=== PATIENT | female | born 1980 | race Caucasian/White ===

== ENCOUNTER → 2020-03-07 11:10 | Outpatient (BNVA) | payer SELFPAY | PROVIDERS: Visit Provider Emergency Medicine | DX: J02.9 Acute pharyngitis, unspecified (principal) | CPT/HCPCS: 87880 ==

== ENCOUNTER → 2021-01-31 15:31 | Outpatient (BNVA) | payer BC, SELFPAY | PROVIDERS: Visit Provider Nurse Practitioner Family | DX: N39.0 Urinary tract infection, site not specified (principal) | CPT/HCPCS: 81000 ==

== ENCOUNTER 2024-05-04 15:08 | Emergency (ER) | payer BC, MEDICAID, SELFPAY ==
[2024-05-04 15:12] VITALS: BP 154/96; PULSE 83; RESP 20; TEMP 36.8; O2SAT 98; BMI 37.8
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
[2024-05-04 15:35] LABS: Basophils # 0.1 10^3/uL (0.0-0.1); Basophils % 0.7 %; Eosinophils # 0.3 10^3/uL (0.0-0.8); Eosinophils % 2.1 %; Hematocrit 41.9 % (36-47); Lymphocytes # 1.9 10^3/uL (0.8-4.8); Lymphocytes % 14.3 %; Mean Corpuscular HGB Conc 31.5 g/dL (30-55); Mean Corpuscular Hemoglobin 26.9 pg (27-33); Mean Corpuscular Volume 85.3 fl (85-98); Mean Platelet Volume 11.3 fL (7.4-10.4); Monocytes # 0.8 10^3/uL (0.2-0.9); Neutrophils # 10.24 10^3/uL (1.8-7.7); Nucleated Red Blood Cells % 0 %; Platelet Count 319 10^3/cmm (157-399); Red Blood Count 4.91 10^6/uL (3.85-5.65); Red Cell Distribution Width 14.2 % (12.1-15.1); White Blood Count 13.47 10^3/uL (3.29-11.43)
[2024-05-04 15:45] LABS: INR 0.93 (0.8-1.2)
[2024-05-04 15:50] LABS: Alanine Aminotransferase 17 U/L (0-33); Albumin Level 4.5 g/dL (3.5-5.2); Alkaline Phosphatase 107 U/L (35-105); Aspartate Amino Transferase 21 U/L (0-32); Blood Urea Nitrogen 10 mg/dL (6-20); Calcium 9.3 mg/dL (8.5-10.5); Carbon Dioxide 22 mmol/L (22-29); Chloride 105 mmol/L (98-107); Globulin 3.7 g/dL (1.3-4.6); Glomerular Filtration Rate 90.9 mL/min (90-130); Glucose 97 mg/dL (65-115); Osmolality Calculated 283 mOsm/kg (285-295); Sodium 137 mmol/L (136-145); Total Bilirubin 0.3 mg/dL (0.15-1.2); Total Protein 8.2 g/dL (6.6-8.7)
[2024-05-04 17:27] VITALS: BP 134/91; PULSE 80; O2SAT 98
[2024-05-04] MEDS: silver sulfadiazine cream 1% 50 gm 1 APPLIC TOPICAL (17:30)
[2024-05-04] MEDS: ketorolac 30 mg/mL INJ IVP (17:31)
[2024-05-04 17:41] VITALS: BP 129/89; PULSE 82; O2SAT 98
== END 2024-05-04 17:42 | disposition home or self-care (01) ==
PROVIDERS: Emergency Provider Emergency Medicine
DX: R07.89 Other chest pain (principal); T23.071A Burn of unspecified degree of right wrist, initial encounter; V89.2XXA Person injured in unspecified motor-vehicle accident, traffic, initial encounter; Z72.0 Tobacco use
CPT/HCPCS: 70450; 71250; 72125; 73110; 73130; 74176; 80053; 85025; 85610; 96374; 99285; J1885; J9999